=== PATIENT | female | born 1965 | race Caucasian/White ===

== ENCOUNTER 2019-04-07 12:48 | Emergency (ER) | payer MEDICAID ==
[~2019-04-07] VITALS: Ht 165.1 cm; Wt 63.5 kg
[2019-04-07 14:30] VITALS: BP_SYST 159
--- NOTE | 2019-04-07 16:58 | NUR ---
Patient to ER bed 3 to gown for evaluation. Side rails up.
--- NOTE | 2019-04-07 17:05 | NUR ---
PT CAME IN COMPLAINING OF ITCHING AROUND THE VAGINA FOR PAST 4 DAYS. PT STATES SHE HAS BUMPS AROUND VAGINA AND LOOKED IT UP AND THINKS SHE HAS SCABIES. PT DENIES DISCHARGE. PT STATES SHES BEEN TAKING HYDOCORTISONE. PT STATES SHE HAD SEX WITH 2 GUYS IN PAST MONTH AND DENIES USING CONDOMS. PT ALERT AND ORIENTED. WILL CONTINUE TO MONITOR.
--- NOTE | 2019-04-07 18:05 | NUR ---
ER Dr. FAROOQ at bedside examining patient.
--- NOTE | 2019-04-07 18:30 | NUR ---
Pelvic exam performed by DR FAROOQ with me at bedside for entire examination. Patient tolerated procedure well. Patient assisted to position of comfort after examination.
[2019-04-07] MEDS ORDERED: AZITHROMYCIN 250 MG TABLET PO ONE (18:45)
[2019-04-07] MEDS ORDERED: cefTRIAXone 1 GM VIAL IM ONE (18:45)
[2019-04-07] MEDS ORDERED: LIDOCAINE 1%, 20 ML MDV 20 ML ONE (18:57)
--- NOTE | 2019-04-07 19:14 | NUR ---
ENDORSED CARE TO ERAN SANDOVAL.
--- NOTE | 2019-04-07 19:37 | NUR ---
Patient given written and verbal discharge instructions and verbalizes understanding. ER MD discussed with patient the results and treatment provided. Patient in stable condition. ID arm band removed. Rx of FLAGYL given. Patient educated on pain management and to follow up with PMD. Pain Scale 0/10. Opportunity for questions provided and answered. Medication side effect fact sheet provided.
[2019-04-07 19:38] VITALS: BP_SYST 159
[2019-04-10 18:26] LABS: NEISSERIA GONORRHOEAE NAA Negative (Negative)
--- NOTE | 2019-04-11 15:02 | NUR ---
RECEIVED +CHLAMYDIA RESULT FROM LAB, ATTEMPTED TO CALL AT GIVEN NUMBER [phone] PHONE NUMBER IS NOT WORKING. PT WAS TREATED APPROPRIATELY
[2019-04-12 11:07] LABS: CHLAMYDIA TRACHOMATIS NAA Positive (Negative)
== END 2019-04-07 19:38 | disposition home or self-care (01) ==
LOC: SED 12:48
DX: N76.0 Acute vaginitis (principal); R03.0 Elevated blood-pressure reading, without diagnosis of hypertension
CPT/HCPCS: 81002; 81025; 87210; 87491; 87591; 96372; 99283; J0696; J2001; Q0144; 87205-TC

== ENCOUNTER 2021-11-01 02:44 | Inpatient (IN) | payer MEDICAID ==
[~2021-11-01] VITALS: Ht 165.1 cm; Wt 73.6 kg
[2021-11-01 02:49] VITALS: BP_SYST 120
[2021-11-01] MEDS ORDERED: NACL 0.9% 1,000 ML IV ONE (03:00)
[2021-11-01] MEDS ORDERED: HALOPERIDOL LACTATE 5 MG/ML VIAL IM ONE (03:00)
[2021-11-01] MEDS ORDERED: LORazepam 2 MG/ML VIAL IVP ONE (03:45)
[2021-11-01 04:02] LABS: HEMATOCRIT 37.9 % (36-48); MONOCYTES # (AUTO) 0.4 K/uL (0.0-1.0); MONOCYTES % (AUTO) 3.7 % (1.7-9.3); RED BLOOD CELL COUNT(AUTO) 3.96 MIL/uL (4.2-6.2)
[2021-11-01 04:08] LABS: BASOPHILS % (AUTO) 0.1 % (0.0-2.0); EOSINOPHILS % (AUTO) 0.4 % (0.0-4.0); HEMOGLOBIN 12.7 g/dL (12.0-16.0); LYMPHOCYTES # (AUTO) 0.7 K/uL (1.0-5.5); LYMPHOCYTES % (AUTO) 6.7 % (20.5-51.5); MEAN CORPUSCULAR HEMOGLOBIN 32 pg (27-31); MEAN CORPUSCULAR HGB CONC 34 % (32-36); MEAN CORPUSCULAR VOLUME 96 fL (79.0-98.0); NEUTROPHILS # (AUTO) 9.4 K/uL (1.8-7.7); NEUTROPHILS % (AUTO) 89.1 % (40.0-70.0); PLATELET COUNT (AUTO) 219 K/uL (130-430); RED CELL DISTRIBUTION WIDTH 13.5 % (9.0-15.0); WHITE BLOOD COUNT (AUTO) 10.5 K/uL (4.8-10.8)
[2021-11-01 04:28] LABS: ANION GAP 12 (5-15); CALCIUM 8.7 mg/dL (8.4-11.0); CHLORIDE 109 mmol/L (98-107); CREATININE 1.02 mg/dL (0.55-1.30); SODIUM SERUM 143 mmol/L (136-145); UREA NITROGEN, BLOOD 20 mg/dL (8-21)
[2021-11-01 04:34] LABS: ALANINE AMINOTRANSFERASE 32 U/L (12-78); ALBUMIN 3.6 g/dL (3.4-4.8); ASPARTATE AMINOTRANSFERASE 55 U/L (10-37); TOTAL BILIRUBIN 0.4 mg/dL (0.0-1.0)
[2021-11-01 04:39] LABS: GFR AFRICAN AMERICAN 72 mL/min (>90); GLUCOSE 34 mg/dL (70-99)
[2021-11-01 04:41] LABS: ACETAMINOPHEN < 1 ug/mL (1-30)
--- NOTE | 2021-11-01 04:41 | NUR ---
Patient bloodsugar checked - 71. Dr. Stockton orders half amp d50
[2021-11-01] MEDS ORDERED: DEXTROSE 50% JECT 50 ML DISP.SYRIN IVP ONE (04:45)
[2021-11-01] MEDS ORDERED: DEXTROSE 50% JECT 50 ML DISP.SYRIN ONE (04:47)
[2021-11-01 04:49] LABS: ALCOHOL, BLOOD 31 mg/dL (<10)
[2021-11-01] MEDS ORDERED: KCL 20 mEq in 100 mL (PREMIX) 100 ML IV ONE ×2 (06:30→14:42)
--- NOTE | 2021-11-01 07:18 | NUR ---
RETURNED FROM RADIOLOGY, PLACED BACK TO BED #6
--- NOTE | 2021-11-01 07:25 | NUR ---
CARDIAC MONITORING PLACED ON PT AND VITALS TAKEN
[2021-11-01] MEDS ORDERED: NALOXONE HCL 2 MG/2 ML SYR (NARCAN) IVP ONE (07:45)
--- NOTE | 2021-11-01 07:56 | NUR ---
Stable VSS Resting with eyes closed Sat Adequate Easily aroused Given Narcan as ordred Became more alert and agitated. Awaiting results
--- NOTE | 2021-11-01 08:03 | NUR ---
PATIENT WAS BROUGHT IN BY THE AMBULANCE FOR DRUG OVER DOSE. PATIENT WAS YELLING AND APPEARED TO BE CONFUSED. PATIENT SEEN BY THE DOCTOR AND ORDERS WERE WRITTEN BY THE DOCTOR. DUE MEDICATIONS AND CARE WERE GIVEN. NO CHANGE IN PATIENT'S CONDITION AND REPORT WAS GIVEN TO THE ON COMING NURSE FOR CONTINOUS EXPERT CARE.
[2021-11-01 08:26] LABS: ACETAMINOPHEN < 1 ug/mL (1-30)
[2021-11-01 08:31] LABS: ALCOHOL, BLOOD < 3 mg/dL (<10)
[2021-11-01 08:56] LABS: BILIRUBIN,URINE NEGATIVE (NEGATIVE); CLARITY/URINE CLEAR (CLEAR); COLOR,URINE YELLOW (YELLOW); GLUCOSE,URINE TRACE (NEGATIVE); KETONES,URINE NEGATIVE (NEGATIVE); LEUKOCYTE ESTERASE ,URINE NEGATIVE (NEGATIVE); NITRITE, URINE POSITIVE (NEGATIVE); PH,URINE 5.5 (5.0-8.0); PROTEIN URINE TRACE (NEGATIVE); UROBILINOGEN,URINE 0.2 (0.2-1.0)
[2021-11-01 08:57] LABS: BLOOD, URINE TRACE (NEGATIVE)
[2021-11-01 09:04] LABS: BACTERIA,URINE FEW /HPF (None Seen); MUCUS,URINE 1+ /LPF (None Seen); RBC,URINE 0-3 /HPF (0-3)
[2021-11-01 09:17] LABS: BARBITURATE, URINE NEGATIVE (NEG <=200); BENZODIAZEPINE, URINE NEGATIVE (NEG <=150); CANNABINOID, URINE POSITIVE (NEG <=50); COCAINE, URINE NEGATIVE (NEG <=150); METHAMPHETAMINES SCREEN,URINE POSITIVE (NEG <=500); OPIATE, URINE POSITIVE (NEG <=100); PHENCYCLIDINE SCREEN,URINE NEGATIVE (NEG <=25); UR TRICYCLIC ANTIDEPRESSANTS NEGATIVE (NEG <=300); URINE AMPHETAMINE POSITIVE (NEG <=500); URINE METHADONE NEGATIVE (NEG <=200); URINE OXYCODONE SCREEN NEGATIVE (NEG <=100); URINE PROPOXYPHENE SCREEN NEGATIVE (NEG <=300)
[2021-11-01] MEDS ORDERED: cefTRIAXone 1 GM in D5W 50 ML IV ONE ×4 (09:30)
--- NOTE | 2021-11-01 10:46 | NUR ---
Stable. VSS. Afebile. Sleeping but easily arousable. Sat adequate. To be admitted. MD speaking to primary..
--- NOTE | 2021-11-01 11:55 | NUR ---
ANN OBTAINED AND TAKEN TO LAB
[2021-11-01] MEDS ORDERED: LORazepam 2 MG/ML VIAL IVP PRN (13:00)
[2021-11-01] MEDS ORDERED: ONDANSETRON HCL 4 MG/2 ML VIAL IVP PRN (13:00)
[2021-11-01] MEDS ORDERED: cefTRIAXone 1 GM VIAL ONE (14:33)
--- NOTE | 2021-11-01 15:22 | NUR ---
Stable VSS Sleeping but easily aroused and able to converse. Potassium replacement in progress. Has been admitted. Primary has seen and given orders.
--- NOTE | 2021-11-01 17:29 | NUR ---
Stable. VSS. Sleeping but arousable. Able to folow commands. Admitted Awaiting bed on floor
--- NOTE | 2021-11-01 17:45 | NUR ---
Friend (Flavio) called and stated that she would come get her when she is ready
[2021-11-01] MEDS ORDERED: ACETAMINOPHEN 500 MG TABLET ONE (20:11)
--- NOTE | 2021-11-01 20:49 | NUR ---
ADMIT NOTE Received pt from ER with a diagnosis of polysubstance overdose. Admission process initiated. Received SBAR report from ERAN Kaplan. Patient oriented to pain management, safety and call light-teach back done.
[2021-11-01] MEDS: D5/0.45 NS 1,000 ML IV SCH ×2 (20:50→21:00)
--- NOTE | 2021-11-01 20:54 | NUR ---
Stable. VSS. Has become more alert and responsive. Able to answer questions and follow directions. Has been admitted. Report to floor. Ambulated to . Placed in bed. Nurse aware.
[2021-11-01 21:00] VITALS: BP_SYST 127
[2021-11-02 00:33] VITALS: BP_SYST 98
--- NOTE | 2021-11-02 03:45 | NUR ---
IV start Patient removed IV. Started new IV #22 gauge to LAC, blood return noted. Patient momentarily awakened, opened eyes and then returned to sleep. Resumed IVF.
[2021-11-02] MEDS: D5/0.45 NS 1,000 ML IV SCH (05:52)
--- NOTE | 2021-11-02 05:59 | NUR ---
Swallow Eval Called Left a message to Rose regarding swallow eval ordered by Jonathan Pressley
[2021-11-02 07:13] LABS: ALBUMIN 2.9 g/dL (3.4-4.8); CALCIUM 7.9 mg/dL (8.4-11.0); CREATININE 0.64 mg/dL (0.55-1.30); POTASSIUM 3.5 mmol/L (3.5-5.1); TOTAL BILIRUBIN 0.8 mg/dL (0.0-1.0)
[2021-11-02 07:45] VITALS: BP_SYST 138
[2021-11-02 07:48] LABS: BASOPHILS % (AUTO) 0.3 % (0.0-2.0); EOSINOPHILS # (AUTO) 0.1 K/uL (0.0-0.4); EOSINOPHILS % (AUTO) 0.9 % (0.0-4.0); HEMATOCRIT 33.6 % (36-48); HEMOGLOBIN 11.5 g/dL (12.0-16.0); LYMPHOCYTES # (AUTO) 1.2 K/uL (1.0-5.5); LYMPHOCYTES % (AUTO) 15.9 % (20.5-51.5); MEAN CORPUSCULAR HEMOGLOBIN 33 pg (27-31); MEAN CORPUSCULAR HGB CONC 34 % (32-36); MEAN CORPUSCULAR VOLUME 95 fL (79.0-98.0); MONOCYTES # (AUTO) 0.5 K/uL (0.0-1.0); MONOCYTES % (AUTO) 5.9 % (1.7-9.3); NEUTROPHILS # (AUTO) 5.9 K/uL (1.8-7.7); PLATELET COUNT (AUTO) 214 K/uL (130-430); RED BLOOD CELL COUNT(AUTO) 3.53 MIL/uL (4.2-6.2); RED CELL DISTRIBUTION WIDTH 13.5 % (9.0-15.0); WHITE BLOOD COUNT (AUTO) 7.7 K/uL (4.8-10.8)
--- NOTE | 2021-11-02 08:00 | NUR ---
AM NOTES PT STABLE.A/OX1. DENIES ANY PAIN OR SOB.VITALS STABLE. RES EVEN AND UNLABORED. IVF INFUSING WELL. SAFTEY /FALL PRECAUTIONS IN PLACE. CALL LIGHT WITHIN REACH.BED ALARM ON . WILL CONTINUE TO MONITOR
[2021-11-02] MEDS ORDERED: cefTRIAXone 1 GM IVPB PREMIX 50 ML IV SCH (09:00)
--- NOTE | 2021-11-02 12:00 | NUR ---
Aircraft Log Clerk FELICIA Campa received a social work consult request for patient for "polysubstance overdose". LAMINA SEARCHERGalen Campa met with patient at bedside. Patient was sleeping and difficult to arouse. LAMINA SEARCHER completed introductions, provided business card, and reason for referral. Substnace Abuse- Patient shared she has been using "speed" on and off for years. According to her, she thinks she may have ingested heroine (she says she doesn't normally use this drug) and that may have led to the overdose. LAMINA SEARCHER attempted to inquire further into the positive results for Cannabinoids, opiates and meth but she declined. LAMINA SEARCHER offered resources to address substance abuse but patient declined. Social- Patient shares she currently resides with her daughter. She asked that her daughter not be contacted, but several times expressed her daughter is probably worrying about where she is at. 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 Patient was difficult to engage, she continuously focused on speaking to her friend Ayaan who she believes has all of her belongings and her car. LAMINA SEARCHER informed her that he has called the hospital and left a number. Patient provided permission to contact Ayaan. LAMINA SEARCHER again offered patient resources to address substance abuse but patient declined and continued to express wanting to find Ayaan to find her belongings. LAMINA SEARCHER will continue to be available as needed. Addendum: 11/02/21 at 1510 by Katheryn Wood MSW LAMINA SEARCHER attempted to contact patient's friend Ayaan , voicemail requested call back was left
[2021-11-02 12:27] VITALS: BP_SYST 131
--- NOTE | 2021-11-02 15:30 | NUR ---
st eval/late entry pt is more alert and awake. a/ox3. denies pain st eval completed. pt eating sandwich.notin any res distress. Addendum: 11/02/21 at 1715 by Tena Winn RN above note [id number]
--- NOTE | 2021-11-02 16:12 | NUR ---
ST EVALUATION COMPLETED. ST TX NOT INDICATED AT THIS TIME. RECOMMEND PO DIET OF REGULAR TEXTURE AND THIN LIQUIDS. DISTANT SUPERVISION FOR ASPIRATION PRECAUTIONS
[2021-11-02 16:14] VITALS: BP_SYST 136
--- NOTE | 2021-11-02 16:40 | NUR ---
ama pt stated ' I want to leave hospital. i want to go home.my friend sadia is here.' explained pt risk and consequences involved in leaving hospital against medical advice . pt verbalized understanding. pt is a/0x 4. pt signed ama form. yates catheter removed intact. advised pt to go to emergency if unable to void. pt verbalized understanding. iv #22 on left arm removed clean dressing applied.no bleeding noted. pt refused to call her daughter. pt did not want to call her daughter.pt left hospital building with security and career resource specialist.misael. as per misael mckeon her friend came to pick pt.charge nurse aureliano made aware.
--- NOTE | 2021-11-02 17:10 | NUR ---
called back dr garcia called back informed that pt left ama.
== END 2021-11-02 16:40 | disposition left against medical advice (07) | DRG 812 ==
LOC: SED 02:44 → STU 10:54
PROVIDERS: ADMIT Preventive Medicine Preventive Medicine/Occupational Environmental Medicine; ATTEND Preventive Medicine Preventive Medicine/Occupational Environmental Medicine
PROC: 5A12012 Performance of Cardiac Output, Single, Manual (ICD-10-PCS; principal; 2021-11-01)
DX: T50.911A Poisoning by multiple unspecified drugs, medicaments and biological substances, accidental (unintentional), initial encounter (principal); G92.9 Unspecified toxic encephalopathy; E87.2 Acidosis; E16.2 Hypoglycemia, unspecified; E87.6 Hypokalemia; N39.0 Urinary tract infection, site not specified; F11.20 Opioid dependence, uncomplicated; F15.20 Other stimulant dependence, uncomplicated; Z20.822 Contact with and (suspected) exposure to COVID-19; R74.01 Elevation of levels of liver transaminase levels; Y92.89 Other specified places as the place of occurrence of the external cause; B96.20 Unspecified Escherichia coli [E. coli] as the cause of diseases classified elsewhere
CPT/HCPCS: 36415; 70450-TC; 71045; 76376; 80053; 80061; 80307; 81000; 82550; 82962; 83605; 83735; 83880; 84484; 85025; 85730-TC; 87040; 87086; 92610-GN; 93005; 93306; 96372; 96374; 96375; 99285; G0378; G0480; G0481; G0482; J0696; J1630; J2060; J3480